=== PATIENT | female | born 1960 | race Caucasian/White ===

== ENCOUNTER → 2018-10-06 14:50 | Outpatient (CLI) | payer BC, SELFPAY ==
--- NOTE | 2018-10-06 15:05 | US_ITS ---
US thyroid HISTORY: ITS.REASON: HYPOTHYROIDISM,WGT GAIN ORDERING PHYSICIAN: Shruti Epperson APRN PATIENT AGE: 58 years Comparison: None FINDINGS: The right lobe is 1.5 x 4.2 x 1.5 cm. There is slight heterogeneous echogenicity. There is an 8 x 5 mm isoechoic nodule along the lower pole posteriorly on the right and could even represent a thyroid gland. The isthmus is thickened at 6 mm The left lobe is 1.6 x 4.2 x 1.6 cm. Mild heterogeneous echogenicity. IMPRESSION: 1. Mildly enlarged thyroid gland with heterogeneous echogenicity. 2. Hypoechoic nodule along the lower pole on the right a x 5 mm posteriorly and could represent a true thyroid nodule or a parathyroid gland.
== END ==
PROVIDERS: PCP Nurse Practitioner; Visit Provider Nurse Practitioner
DX: E03.8 Other specified hypothyroidism (principal); R63.5 Abnormal weight gain
CPT/HCPCS: 76536

== ENCOUNTER → 2018-11-15 06:59 | Outpatient (CLI) | payer BC, SELFPAY ==
--- NOTE | 2018-11-15 07:03 | NM_ITS ---
NM thyroid image uptake CLINICAL INDICATION: ITS.REASON: THYROMEGLY, THYROID NODULE ORDERING PHYSICIAN: Shruti Epperson APRN PATIENT AGE: 58 years Comparison: 10/06/2018 DOSE: 323 uCi I-123 orally FINDINGS: The 24 hour radioiodine uptake 2.4% is normal. Images obtained of the thyroid show mild heterogeneous enlargement. No discrete cold or hot nodule is evident. The small nodular area noted on ultrasound the right lobe may be below limits of resolution on this exam due to the size and location IMPRESSION: 1. Normal 24-hour radioiodine uptake. 2. Mildly enlarged thyroid gland without discrete hot or cold nodule. Consider 6 month follow-up ultrasound of the thyroid gland.
== END ==
PROVIDERS: PCP Nurse Practitioner; Visit Provider Nurse Practitioner
DX: E04.1 Nontoxic single thyroid nodule (principal)
CPT/HCPCS: 78014; A9516

== ENCOUNTER → 2020-04-18 10:17 | Outpatient (CLI) | payer BC, SELFPAY ==
--- NOTE | 2020-04-18 10:24 | XR_ITS ---
PROCEDURE: XR HIP RT 2-3V W/PELVIS CLINICAL INDICATION: RT HIP PAIN COMPARISON: No exams were available for comparison FINDINGS: No fracture or dislocation is evident. There is mild asymmetrical joint space narrowing mild spurring of the acetabulum superiorly and inferiorly. The SI joints and symphysis pubis appear normal. Left hip appears grossly normal. IMPRESSION: Mild osteoarthritic changes right hip Dictated by: Dr. Jaime Retana MD 04/18/2020 15:20 Dr. Jaime Retana MD in [place] 04/18/2020 15:20
== END ==
PROVIDERS: PCP Nurse Practitioner; Visit Provider Nurse Practitioner
DX: M25.551 Pain in right hip (principal)
CPT/HCPCS: 73502

== ENCOUNTER → 2020-04-23 08:24 | Outpatient (CLI) | payer BC, SELFPAY ==
--- NOTE | 2020-04-23 08:37 | MM_ITS ---
PROCEDURE: MM DIG SCREENING MAMM BI W/CAD Digital Breast Tomosynthesis Included CLINICAL INDICATION: SCREENING There is a history of breast cancer in the patient's maternal cousin diagnosed after menopause. COMPARISON: MG DMSB DIGITAL MAMM-SCREEN BILATERAL from 04/17/2011 MG DMDBAV DIG MAMM-DX BILAT W/ADD VIEWS from 04/28/2011 TECHNIQUE: Standard CC and MLO images and 3D Tomosynthesis was obtained. R2 CAD reviewed. FINDINGS: Moderate scattered fibroglandular densities are seen in both breasts. There are 2 mole markers right breast. There has been some interval fatty replacement of the breast parenchyma since the previous 2 exams. There is benign-appearing calcification left breast. There is no suspicious lesion in either breast and no suspicious microcalcifications. IMPRESSION: Fibrofatty parenchyma with no suspicious lesions seen BI-RAD Category: 2 Benign Finding(s) FOLLOW-UP: 1YR 1 Year Follow-up (A letter has been sent to the patient regarding results of the study.) Dictated by: Dr. Jaime Retana MD 04/24/2020 13:17 Dr. Jaime Retana MD in [place] 04/24/2020 13:17
== END ==
PROVIDERS: PCP Nurse Practitioner; Visit Provider Nurse Practitioner
DX: Z12.31 Encounter for screening mammogram for malignant neoplasm of breast (principal)
CPT/HCPCS: 77063; 77067

== ENCOUNTER 2020-09-28 14:17 | Inpatient (IN) | payer BC, SELFPAY ==
[2020-09-28] VITALS (20 sets, daily range): BP systolic 102–197; BP diastolic 59–86; PULSE 75–116; RESP 14–20; TEMP 36.5–38; O2SAT 82–99; BMI 40.1
--- NOTE | 2020-09-28 14:32 | HMH.EDGENADL ---
ED Disposition Clinical Impression: Acute appendicitis Qualifiers: Acute appendicitis type: with localized peritonitis Appendicitis gangrene presence: without gangrene Appendicitis perforation presence: without perforation Appendicitis abscess presence: without abscess Qualified Code(s): K35.30 - Acute appendicitis with localized peritonitis, without perforation or gangrene Disposition: Still a Patient Condition on Discharge: Good Instructions: DI for Acute Abdominal Pain Referrals: Anisa Pelletier APRN [Primary Care Provider] - 7-14 days Time of Disposition: 17:08 - Critical Care Critical Care Time: No Attestation: On , the high probability of a clinically significant, sudden or life threatening deterioration of the following system(s) required my full and direct attention, intervention and personal management. The time I documented below is in addition to time spent performing reported procedures but includes the following listed in this critical care notation. Medical Decision Making - Medical Records Medical records reviewed: Yes: I reviewed the patient's medical records. - Cuco Inquiry Pt receiving controlled substance: No Vital Signs: 09/28/20 14:17 09/28/20 14:32 09/28/20 15:00 Temperature 99.9 F H Temperature Source Oral Pulse Rate 110 H Pulse Rate [Right Radial] 116 H Respiratory Rate 18 20 Blood Pressure 197/86 H 113/68 Blood Pressure [Right Arm] 122/83 Blood Pressure Mean 87 Blood Pressure Mean [Right Arm] 96 Blood Pressure Source Blood Pressure Source [Right Arm] Automatic Cuff Blood Pressure Position Blood Pressure Position [Right Arm] Sitting 02 Sat by Pulse Oximetry 99 98 Oxygen Delivery Method Room Air 09/28/20 16:43 Temperature Temperature Source Pulse Rate 105 H Pulse Rate [Right Radial] Respiratory Rate 18 Blood Pressure 111/75 Blood Pressure [Right Arm] Blood Pressure Mean Blood Pressure Mean [Right Arm] Blood Pressure Source Automatic Cuff Blood Pressure Source [Right Arm] Blood Pressure Position Sitting Blood Pressure Position [Right Arm] 02 Sat by Pulse Oximetry 98 Oxygen Delivery Method Room Air - Lab Data Lab results reviewed: Yes: I reviewed the patient's lab results. Lab Results 09/28/20 14:23: Urine Color Yellow, Urine Appearance Clear, Urine pH 5.5, Ur Specific [place] 1.010, Urine Protein Negative, Urine Glucose (UA) Negative, Urine Ketones Negative, Urine Blood Negative, Urine Nitrate Negative, Urine Bilirubin Negative, Urine Urobilinogen 0.2, Ur Leukocyte Esterase Trace, Urine RBC None, Urine WBC Occasional, Ur Squamous Epith Cells Occasional, Urine Bacteria None 09/28/20 14:52: WBC 11.8 H, RBC 4.82, Hgb 14.0, Hct 41.2, MCV 85.4, MCH 29.1, MCHC 34.0, RDW 13.4, Plt Count 312, MPV 7.0 L, Neut % (Auto) 85.6 H, Lymph % (Auto) 6.5 L, [place] % (Auto) 7.2, Eos % (Auto) 0.2, Baso % (Auto) 0.5, Neut # (Auto) 10.1 H, Lymph # (Auto) 0.8, [place] # (Auto) 0.8, Eos # (Auto) 0.0, Baso # (Auto) 0.1, Total Counted 100, Neutrophils % (Manual) 74, Band Neutrophils % 4.0, Lymphocytes % (Manual) 11, Monocytes % (Manual) 11 H, Platelet Estimate Normal, RBC Morphology Normal 09/28/20 14:52: Sodium 136, Potassium 3.9, Chloride 99, Carbon Dioxide 27, Anion Gap 13.9, BUN 16, Creatinine 1.10 H, Estimated Creat Clear 88, Estimated GFR 51 L, Est GFR ( Amer) 61, Glucose 132 H, Calcium 9.7, Total Bilirubin 3.4 H, AST 27, ALT 31, Alkaline Phosphatase 68, Total Protein 8.3 H, Albumin 4.9, Globulin 3.4 H, Albumin/Globulin Ratio 1.4, Lipase 54 Result diagrams: 09/28/20 14:52 09/28/20 14:52 Orders (Tests/Meds): ED MEDICATIONS Discontinued Medications Generic Name Dose Route Start Last Admin Trade Name Dustinq PRN Reason Stop Dose Admin Iopamidol 75 ml 09/28/20 15:26 09/28/20 15:26 Iopamidol-370 (76%);100ml Bottle IV 09/28/20 15:27 75 ml ONCE ONE Administration Sodium Chloride 10 ml 09/28/20 15:26 09/28/20 15:26 Sodium Chloride 0.9% 1
--- NOTE | 2020-09-28 14:46 | CT_ITS ---
PROCEDURE INFORMATION: Exam: CT Abdomen And Pelvis With Contrast Exam date and time: 09/28/2020 2:46 PM Age: 60 years old Clinical indication: Abdominal pain; Localized; Right lower quadrant (rlq); Additional info: Rlq pain TECHNIQUE: Imaging protocol: Computed tomography of the abdomen and pelvis with contrast. Radiation optimization: All CT scans at this facility use at least one of these dose optimization techniques: automated exposure control; mA and/or kV adjustment per patient size (includes targeted exams where dose is matched to clinical indication); or iterative reconstruction. Contrast material: ISOVUE; Contrast volume: 75 ml; Contrast route: IV; COMPARISON: CR XR HIP RT 2-3V W/PELVIS 04/18/2020 10:27 AM FINDINGS: Lungs: Atelectatic changes within the lung bases. Mediastinal space: Large hiatal hernia. Liver: Normal. No mass. Gallbladder and bile ducts: There has been a cholecystectomy. Pancreas: Normal. No ductal dilation. Spleen: The spleen demonstrates punctate calcifications, consistent with remote granulomatous organism exposure. Adrenal glands: Normal. No mass. Kidneys and ureters: Normal. No hydronephrosis. Stomach and bowel: Unremarkable. No obstruction. No mucosal thickening. Appendix: There is enlargement of the appendix with surrounding inflammatory changes consistent with acute appendicitis. Intraperitoneal space: Normal. No significant fluid collection. Vasculature: Unremarkable. No abdominal aortic aneurysm. Lymph nodes: Right lower quadrant mesenteric lymph nodes measure up to 1.4 cm. Urinary bladder: Unremarkable as visualized. Reproductive: Heterogeneous appearance of the uterus may be secondary to leiomyomatous changes. Bones/joints: The lumbar spine demonstrates mild degenerative changes at multiple levels. Soft tissues: There is a fat-containing umbilical hernia. Other findings: Small amount of fluid is noted within the right lower quadrant. IMPRESSION: 1. There is enlargement of the appendix with surrounding inflammatory changes consistent with acute appendicitis. 2. Large hiatal hernia. 3. Heterogeneous appearance of the uterus may be secondary to leiomyomatous changes. 4. Small amount of fluid is noted within the right lower quadrant. 5. Right lower quadrant mesenteric lymph nodes measure up to 1.4 cm.
[2020-09-28 15:00] LABS: Basophils # 0.1 K/mm3 (0-0.2); Basophils % 0.5 % (0.1-2.0); Eosinophils % 0.2 % (0.1-12.0); Hematocrit 41.2 % (37.0-47.0); Lymphocytes # 0.8 K/mm3 (0.7-4.5); Lymphocytes % 6.5 % (10-50); Mean Corpuscular Hemoglobin 29.1 pg (27.0-31.2); Mean Corpuscular Volume 85.4 fl (81-99); Monocytes # 0.8 K/mm3 (0.1-1.0); Monocytes % 7.2 % (1.7-9.3); Neutrophils # 10.1 K/mm3 (1.8-7.8); Neutrophils % 85.6 % (37.0-80.0); Platelet Count 312 K/mm3 (142-424); Red Blood Count 4.82 M/mm3 (4.20-5.40); Red Cell Distribution Width 13.4 % (11.5-17.5); White Blood Count 11.8 K/mm3 (4.8-10.8)
[2020-09-28 15:02] LABS: MANUAL DIFFERENTIAL MANUAL DIFFERENTIAL (MANUAL DIFF)
[2020-09-28 15:02] LABS: Microscopic, Urine URINE MICROSCOPIC (MICROSCOPIC)
[2020-09-28 15:03] LABS: Chloride 99 mmol/L (98-107); Sodium 136 mmol/L (136-145)
[2020-09-28 15:04] LABS: Appearance,Urine CLEAR (Clear); Bilirubin,Urine Negative (Negative); Blood, Urine Negative (Negative); Color,Urine YELLOW (Yellow); Glucose,Urine (UA) Negative (Negative); Ketones,Urine Negative (Negative); Leukocyte Esterase,Urine TRACE (Negative); Nitrate,Urine Negative (Negative); PH,Urine 5.5 (5.0-8.5); Protein,Urine Negative (Negative); Urobilinogen,Urine 0.2 EU/dl (0.2)
[2020-09-28 15:04] LABS: Potassium 3.9 mmoL/L (3.5-5.1)
[2020-09-28 15:06] LABS: Alanine Aminotransferase 31 U/L (12-78); Alkaline Phosphatase 68 U/L (38-126); Anion Gap 13.9 mEq/L (5-15); Aspartate Amino Transferase 27 U/L (14-36); Bilirubin,Total 3.4 mg/dl (0.2-1.3); Blood Urea Nitrogen 16 mg/dl (7-17); Carbon Dioxide 27 mmol/L (22.0-30.0); Creatinine Clearance Estimated 88 mL/min (50-200); Estimated Glomerular Filt Rate 51 ml/min (>60); GFR (African American) 61 ML/MIN (>60)
[2020-09-28 15:07] LABS: Albumin Level 4.9 g/dl (3.5-5.0); Albumin/Globulin Ratio 1.4 (1.1-1.8); Calcium 9.7 mg/dl (8.4-10.2); Globulin 3.4 g/dL (1.3-3.2); Glucose 132 mg/dl (74-100); Lipase 54 U/L (23-300); Total Protein,Serum 8.3 g/dl (6.3-8.2)
[2020-09-28 15:15] LABS: Squamous Epithelial Cell,Urine Occasional #/hpf (0-5); WBC,Urine Occasional #/hpf (0-3)
[2020-09-28 15:18] LABS: Lymphocytes % 11 % (10-50); Monocytes % 11 % (2-9); Neutrophils % 74 % (42-76); Platelet Estimate Normal; RBC Morphology Normal; Total Cells Counted 100
--- NOTE | 2020-09-28 15:51 | PC.NURSE ---
MERCEDES MEEHAN speaking with willy
--- NOTE | 2020-09-28 15:53 | PC.NURSE ---
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
--- NOTE | 2020-09-28 15:54 | PC.NURSE ---
MERCEDES MEEHAN speaking with Dr. Holden
--- NOTE | 2020-09-28 15:59 | PC.NURSE ---
MERCEDES MEEHAN states Dr. Holden is coming in to see pt.
[2020-09-28 16:14] LABS: Adenovirus,PCR Not Detected (NotDetected); Bordetella Pertussis Not Detected (NotDetected); Chlamydophila Pneumoniae, PCR Not Detected (NotDetected); Coronavirus 19, PCR Not Detected (NotDetected); Coronavirus 229E Not Detected (NotDetected); Coronavirus NL63 Not Detected (NotDetected); Coronavirus OC43 Not Detected (NotDetected); Coronovirus HKU1,PCR Not Detected (NotDetected); Human Metapneumovirus Not Detected (NotDetected); Influenza A, PCR Not Detected (NotDetected); Influenza AH1, 2009 Not Detected (NotDetected); Influenza AH1, PCR Not Detected (NotDetected); Influenza AH3,PCR Not Detected (NotDetected); Influenza B, PCR Not Detected (NotDetected); Mycoplasma Pneumoniae, PCR Not Detected (NotDetected); Parainfluenza 1, PCR Not Detected (NotDetected); Parainfluenza 2, PCR Not Detected (NotDetected); Parainfluenza 3, PCR Not Detected (NotDetected); Parainfluenza 4, PCR Not Detected (NotDetected); Respiratory Syncytial Virus Not Detected (NotDetected); Rhinovirus/Enterovirus Not Detected (NotDetected)
--- NOTE | 2020-09-28 16:50 | PC.NURSE ---
Dr. Holden at [facility]
--- NOTE | 2020-09-28 16:58 | PC.NURSE ---
Dr. Holden states will be taking pt to OR, states he has already notified general house worker to call in OR staff.
--- NOTE | 2020-09-28 17:05 | HMH.GSHP ---
HPI HPI: Patient is a 60-year-old female. She has had right lower quadrant pain for about 4 days. She developed nausea today and therefore presented to the emergency department where she was seen and evaluated. She was found to have mild tachycardia and tenderness in the right lower quadrant. She had a mild leukocytosis. She underwent CT scan which revealed findings of distended appendix with periappendiceal stranding with a small amount of free fluid consistent with appendicitis. Surgical consultation was obtained. [facility] History I have reviewed the patient's past medical history: Yes Medical History: Reports:: Hypertension *Have you ever received a pneumonia vaccine?: No *Have you received a flu vaccine this season?: No - *Social History Smoking Status: Never smoker Alcohol Intake: never *Occupational Status:: other *Travel in the last 8 weeks: None Family Hx:: Non-contributory Review of Systems - Review of Systems Review of systems:: pertinent systems reviewed and negative unless documented below Meds Home Medications Medication Instructions Recorded Confirmed Type Levothyroxine Sodium 100 mcg PO DAILY 09/28/20 09/28/20 History [Levothyroxine 100mcg (0.1MG) Tab] Lisinopril/Hydrochlorothiazide 1 each PO DAILY 09/28/20 09/28/20 History [Lisinopril-Hctz 20-12.5 mg Tab] Meloxicam 15 mg PO DAILY 09/28/20 09/28/20 History Allergies Allergy/AdvReac Type Severity Reaction Status Date / Time cephalexin [From Keflex] Allergy Verified 09/28/20 14:33 Penicillins Allergy Verified 09/28/20 14:33 Sulfa (Sulfonamide Allergy Verified 09/28/20 14:33 Antibiotics) Exam Vital signs and Labs for Last 24 Hours: Temp Pulse Resp BP Pulse Ox 99.9 F H 105 H 18 111/75 98 09/28/20 14:17 09/28/20 16:43 09/28/20 16:43 09/28/20 16:43 09/28/20 16:43 Laboratory Results - last 24 hr 09/28/20 14:23: Urine Color Yellow, Urine Appearance Clear, Urine pH 5.5, Ur Specific [place] 1.010, Urine Protein Negative, Urine Glucose (UA) Negative, Urine Ketones Negative, Urine Blood Negative, Urine Nitrate Negative, Urine Bilirubin Negative, Urine Urobilinogen 0.2, Ur Leukocyte Esterase Trace, Urine RBC None, Urine WBC Occasional, Ur Squamous Epith Cells Occasional, Urine Bacteria None 09/28/20 14:52: WBC 11.8 H, RBC 4.82, Hgb 14.0, Hct 41.2, MCV 85.4, MCH 29.1, MCHC 34.0, RDW 13.4, Plt Count 312, MPV 7.0 L, Neut % (Auto) 85.6 H, Lymph % (Auto) 6.5 L, [place] % (Auto) 7.2, Eos % (Auto) 0.2, Baso % (Auto) 0.5, Neut # (Auto) 10.1 H, Lymph # (Auto) 0.8, [place] # (Auto) 0.8, Eos # (Auto) 0.0, Baso # (Auto) 0.1, Total Counted 100, Neutrophils % (Manual) 74, Band Neutrophils % 4.0, Lymphocytes % (Manual) 11, Monocytes % (Manual) 11 H, Platelet Estimate Normal, RBC Morphology Normal 09/28/20 14:52: Sodium 136, Potassium 3.9, Chloride 99, Carbon Dioxide 27, Anion Gap 13.9, BUN 16, Creatinine 1.10 H, Estimated Creat Clear 88, Estimated GFR 51 L, Est GFR ( Amer) 61, Glucose 132 H, Calcium 9.7, Total Bilirubin 3.4 H, AST 27, ALT 31, Alkaline Phosphatase 68, Total Protein 8.3 H, Albumin 4.9, Globulin 3.4 H, Albumin/Globulin Ratio 1.4, Lipase 54 I & O for Last 24 hours: Intake & Output 09/26/20 09/27/20 09/28/20 09/29/20 11:59 11:59 11:59 11:59 Weight 227 lb - Constitutional no acute distress - *Routine HEENT Exam Head: Present: normocephalic Eye: Present: EOMI, PERRL ENT: Present: mucous membranes moist - *Routine Neck Exam Present: supple. Absent: lymphadenopathy - *Routine Respiratory Exam Present: CTA bilaterally - *Routine Cardiovascular Exam Present: RRR - *Routine Abdominal Exam Present: soft, tenderness Comments: Patient has tenderness in the right lower quadrant with voluntary guarding. - *Routine Rectal Exam Rectal:: deferred - *Routine Genitalia Exam Genitalia:: deferred - *Routine Extremities Exam Absent: cyanosis, clubbing, edema - *Routine Skin Exam Present: warm. Absent:
--- NOTE | 2020-09-28 17:25 | PC.NURSE ---
surgery staff at
--- NOTE | 2020-09-28 19:06 | P.OP_ITS ---
Date of procedure: 09/28/20 Pre-op Diagnosis:: Acute appendicitis Post-op Diagnosis:: Acute walled off perforated necrotic appendicitis Procedure performed:: Laparoscopic appendectomy Surgeon:: Kevin Holden MD TELECOMMUNICATION SYSTEMS DESIGNER:: Other Anesthesia: TYRA Estimated blood loss (mL): 20 Clinical Note:: Patient is a 60-year-old female. She has had right lower quadrant pain for about 4 days. She describes the pain as sharp. Worse with movement. She developed nausea today and therefore presented to the emergency department where she was seen and evaluated. She was found to have mild tachycardia and tenderness in the right lower quadrant. She had a mild leukocytosis. She had low-grade fever. She underwent CT scan which revealed findings of distended linda endix with periappendiceal stranding with a small amount of free fluid consistent with appendicitis. Surgical consultation was obtained. Operative findings:: She had a severe acute appendicitis with necrosis and essentially walled off perforation as the appendix was adherent to the abdominal sidewall. This was essentially consistent with periappendiceal abscess with necrosis and walled off perforation. Operative note:: Patient was taken to the operating room. She was given preoperative intravenous antibiotics. In the operating room she was placed in the supine position. General anesthesia was induced. Antunez catheter was placed. Abdomen was prepped and draped in the standard surgical fashion. Infraumbilical skin incision was made and while performing abdominal wall lift Veress needle was inserted. 12 mm optical trocar was inserted at the umbilicus. Laparoscopic surveillance was carried out. She has some cloudy fluid in the pelvis. 5 mm trocar was inserted in the lower abdomen. 5 mm trocar was inserted in the right upper abdomen. The cecum was inspected. There was some inflammatory change. The base of the appendix was initially identified. The cecum was mobilized medially and the appendix was adherent to the abdominal sidewall. Upon mobilization of the appendix there was pus and a couple fecaliths which exuded from the appendix. This was immediately suctioned free and removed from the peritoneal cavity. Appendix was extremely inflamed with evidence of necrosis and walled off perforation. There was a large amount of induration and mobilization of the appendix from the pericecal tissues and abdominal sidewall is quite difficult. This was a prolonged procedure. Ultimately the appendix was mobilized and the mesoappendix was divided with KULDIP ultrasonic harmonic alessandra. Prolonged dissection was carried out down to the base of the appendix which was relatively spared. The appendix was divided at its base with endoscopic ADDY linear cutting stapling device. The appendix was placed within an Endo Catch retrieval device removed from the peritoneal cavity via the umbilical trocar site which required some minimal extension of the fascial incision for delivery. The previous abscess cavity at the pericecal location was thoroughly irrigated and aspirated until clear with several liters of warm saline. Irrigation was also carried out in the pelvis and perihepatic space. There appeared to be good hemostasis. Trochars were then removed as CO2 pneumoperitoneum was evacuated. Fascia at the umbilicus was closed with a couple of interrupted 0 Vicryl sutures. Local anesthetic was infiltrated. Skin incisions were closed with 4-0 Monocryl in a subcuticular fashion. Steri-Strips and dressings were applied. Condition: stable Disposition: PACU Specimens:: Appendix Complications:: None immediately apparent
--- NOTE | 2020-09-28 19:21 | HMH.ANESCL ---
[facility] Anesthesia Checklist - Patient Identification Patient Identification: Arm Band - Structural Data Admitted From: Emergency Dept Planned Operative Procedure/s: Lap. appy Consent for Planned Operative Procedure(s) Verified: Yes Verified Documents: Surgical Consent, History and Physical - NPO Status Verified Time NPO: 00:00 - Additional verifications Anesthesia Reactions: No Hx Blood Transfusions: No Blood Transfusion Reaction: No - Airway Assessment C-Spine Mobility Assessed: Yes TMJ Mobility Assessed: Yes Dentition: Good Dentition - Neurological Assessment Level of Consciousness: Awake, Alert - Anesthesia Plan Anesthesia Risk discussed: Yes Anesthesia Plan: Verified ASA Class: III Anesthesia Type: General [facility] History Medical History: Reports:: Hypertension Denies:: Seizures *Have you ever received a pneumonia vaccine?: No *Have you received a flu vaccine this season?: No Other Medical History: Denies: Blood Transfusion Reaction Anesthesia experience/problems:: None - *Social History Smoking Status: Never smoker Alcohol Intake: never Substance Use Type: denies use *Occupational Status:: other *Travel in the last 8 weeks: None Family Hx:: Non-contributory
--- NOTE | 2020-09-28 19:25 | P.PN_ITS ---
[facility] Anesthesia Record Part I Intake, IV Amount: 1,000 Estimated blood loss (mL): 3 Urine output (mL): 250 Blood Products used (#): none Blood Pressure: 129/64 SaO2: 93 Pulse Rate: 91 Respiratory Rate: 14 Temperature: 98.7 F Patient is:: Awake, Drowsy Stable to PACU at:: 19:25
[2020-09-28 19:39] LABS: Microscopic,Cath URINE MICROSCOPIC (MICROSCOPIC)
--- NOTE | 2020-09-28 19:39 | PC.NURSE ---
Addendum entered by Mary Rand CNA 09/28/20 19:40: CORRECTION- CORRECT ARRIVAL TIME TO FLOOR 1938 Original Note: PT ARRIVED TO FLOOR VIA BED FROM OR/STAFF AT 2939.
[2020-09-28 19:40] LABS: Appearance,Urine/Cath CLEAR (Clear); Bilirubin,Cath Negative (Negative); Blood, Urine/Cath Negative (Negative); Color,Urine/Cath YELLOW (Yellow); Glucose,Urine/Cath (UA) Negative (Negative); Ketones,Urine/Cath Negative (Negative); Leukocyte Esterase,Cath Negative (Negative); Nitrate,Cath Negative (Negative); PH,Urine/Cath 5.5 (5.0-8.5); Protein,Urine/Cath Negative (Negative); Specific Gravity, Urine/Cath <= 1.005 (1.005-1.030); Urobilinogen,Cath 0.2 EU/dl (0.2)
[2020-09-28 19:47] LABS: Bacteria,Urine/Cath TRACE /lpf
[2020-09-29] VITALS (7 sets, daily range): BP systolic 103–124; BP diastolic 59–74; PULSE 68–85; RESP 16–17; TEMP 36.4–37; O2SAT 93–97; BMI 40.1
--- NOTE | 2020-09-29 02:59 | PC.NURSE ---
A&OX4. PT TOLERATING RA WELL. POST OP VS ALL STABLE. PT HAS NOT C/O PAIN THUS FAR THIS SHIFT. 3 ABD INCISIONS CDI. PT HAS WALKED TO AND FROM BR WITH STANDBY ASSIST. ADEQUATE U/O. PT SLEEPING MAJORITY OF SHIFT. TOLERATING CLEAR LIQUID DIET. VSS WILL CONTINUE TO MONITOR.
--- NOTE | 2020-09-29 05:26 | PC.NURSE ---
PT ARRIVED TO FLOOR VIA W/C FROM ED W/STAFF AT 0930
[2020-09-29 06:48] LABS: Lymphocytes # 0.4 K/mm3 (0.7-4.5); Lymphocytes % 4.4 % (10-50)
[2020-09-29 06:58] LABS: Mean Corpuscular HGB Conc 34.1 g/dL (31.8-35.4); Mean Corpuscular Hemoglobin 29.2 pg (27.0-31.2); Mean Corpuscular Volume 85.5 fl (81-99); Mean Platelet Volume 7.3 fl (7.4-10.4); Monocytes # 0.4 K/mm3 (0.1-1.0); Neutrophils # 7.4 K/mm3 (1.8-7.8); Neutrophils % 90.5 % (37.0-80.0); Platelet Count 235 K/mm3 (142-424); Red Blood Count 4.22 M/mm3 (4.20-5.40); Red Cell Distribution Width 13.3 % (11.5-17.5); White Blood Count 8.2 K/mm3 (4.8-10.8)
[2020-09-29 07:03] LABS: Hemoglobin 12.3 g/dL (12.2-16.2)
[2020-09-29 07:04] LABS: MANUAL DIFFERENTIAL MANUAL DIFFERENTIAL (MANUAL DIFF)
[2020-09-29 07:11] LABS: Blood Urea Nitrogen 16 mg/dl (7-17); Chloride 104 mmol/L (98-107); Creatinine Clearance Estimated 43 mL/min (50-200); Estimated Glomerular Filt Rate 51 ml/min (>60); GFR (African American) 61 ML/MIN (>60); Glucose 215 mg/dl (74-100); Potassium 3.7 mmoL/L (3.5-5.1)
[2020-09-29 08:03] LABS: Lymphocytes % 9 % (10-50); Monocytes % 6 % (2-9); Neutrophils % 81 % (42-76); Platelet Estimate Normal; RBC Morphology Normal; Total Cells Counted 100
[2020-09-29 08:04] LABS: Anion Gap 10.7 mEq/L (5-15); Carbon Dioxide 25 mmol/L (22.0-30.0); Sodium 136 mmol/L (136-145)
[2020-09-29 08:15] LABS: Calcium 8.5 mg/dl (8.4-10.2)
--- NOTE | 2020-09-29 08:55 | HMH.GSPN ---
Subjective Narrative: Patient feels better. No intense pain, now resolved. Has some soreness. Progress Note: A&P Assessment and Plan for All Diagnoses:: Continue antibiotics. Limit to clear liquids today due to potential for ileus and due to the amount of dissection required for necrotic perforated appendicitis with established focal peritonitis. Exam Vital signs and Labs for Last 24 Hours: Temp Pulse Resp BP Pulse Ox 98.6 F 79 17 117/64 93 L 09/29/20 08:00 09/29/20 08:00 09/29/20 08:00 09/29/20 08:00 09/29/20 08:00 Laboratory Results - last 24 hr 09/28/20 14:23: Urine Color Yellow, Urine Appearance Clear, Urine pH 5.5, Ur Specific [place] 1.010, Urine Protein Negative, Urine Glucose (UA) Negative, Urine Ketones Negative, Urine Blood Negative, Urine Nitrate Negative, Urine Bilirubin Negative, Urine Urobilinogen 0.2, Ur Leukocyte Esterase Trace, Urine RBC None, Urine WBC Occasional, Ur Squamous Epith Cells Occasional, Urine Bacteria None 09/28/20 14:52: WBC 11.8 H, RBC 4.82, Hgb 14.0, Hct 41.2, MCV 85.4, MCH 29.1, MCHC 34.0, RDW 13.4, Plt Count 312, MPV 7.0 L, Neut % (Auto) 85.6 H, Lymph % (Auto) 6.5 L, [place] % (Auto) 7.2, Eos % (Auto) 0.2, Baso % (Auto) 0.5, Neut # (Auto) 10.1 H, Lymph # (Auto) 0.8, [place] # (Auto) 0.8, Eos # (Auto) 0.0, Baso # (Auto) 0.1, Total Counted 100, Neutrophils % (Manual) 74, Band Neutrophils % 4.0, Lymphocytes % (Manual) 11, Monocytes % (Manual) 11 H, Platelet Estimate Normal, RBC Morphology Normal 09/28/20 14:52: Sodium 136, Potassium 3.9, Chloride 99, Carbon Dioxide 27, Anion Gap 13.9, BUN 16, Creatinine 1.10 H, Estimated Creat Clear 88, Estimated GFR 51 L, Est GFR ( Amer) 61, Glucose 132 H, Calcium 9.7, Total Bilirubin 3.4 H, AST 27, ALT 31, Alkaline Phosphatase 68, Total Protein 8.3 H, Albumin 4.9, Globulin 3.4 H, Albumin/Globulin Ratio 1.4, Lipase 54 09/28/20 15:42: Urine Color Yellow, Urine Appearance Clear, Urine pH 5.5, Ur Specific [place] <= 1.005, Urine Protein Negative, Urine Glucose (UA) Negative, Urine Ketones Negative, Urine Blood Negative, Urine Nitrate Negative, Urine Bilirubin Negative, Urine Urobilinogen 0.2, Ur Leukocyte Esterase Negative, Urine RBC None, Urine WBC None, Ur Squamous Epith Cells 3-5, Urine Bacteria Trace 09/28/20 16:05: Chlamy pneumoniae PCR Not detected, Adenovirus (PCR) Not detected, B. pertussis DNA (PCR) Not detected, Coronavirus OC43 (PCR) Not detected, Coronavirus HKU1 (PCR) Not detected, Coronavirus 229E (PCR) Not detected, SARS-CoV-2 (PCR) Not detected, Coronavirus NL63 (PCR) Not detected, Human Metapneumovir PCR Not detected, Influenza A (H1) PCR Not detected, Influ A (H1N1/09) PCR Not detected, Influenza A (H3) PCR Not detected, Influenza Type A (PCR) Not detected, Influenza Type B (PCR) Not detected, M. pneumoniae (PCR) Not detected, Parainfluenza 1 (PCR) Not detected, Parainfluenza 2 (PCR) Not detected, Parainfluenza 3 (PCR) Not detected, Parainfluenza 4 (PCR) Not detected, RSV (PCR) Not detected, Entero/Rhino (PCR) Not detected 09/29/20 06:28: WBC 8.2 D, RBC 4.22, Hgb 12.3 D, Hct 36.0 L, MCV 85.5, MCH 29.2, MCHC 34.1, RDW 13.3, Plt Count 235, MPV 7.3 L, Neut % (Auto) 90.5 H, Lymph % (Auto) 4.4 L, [place] % (Auto) 5.0, Eos % (Auto) 0.0 L, Baso % (Auto) 0.0 L, Neut # (Auto) 7.4, Lymph # (Auto) 0.4 L, [place] # (Auto) 0.4, Eos # (Auto) 0.0, Baso # (Auto) 0.0, Total Counted 100, Neutrophils % (Manual) 81 H, Band Neutrophils % 4.0, Lymphocytes % (Manual) 9 L, Monocytes % (Manual) 6, Platelet Estimate Normal, RBC Morphology Normal 09/29/20 06:28: Sodium 136, Potassium 3.7, Chloride 104, Carbon Dioxide 25, Anion Gap 10.7, BUN 16, Creatinine 1.10 H, Estimated Creat Clear 43, Estimated GFR 51 L, Est GFR ( Amer) 61, Glucose 215 H D, Calcium 8.5 D I & O for Last 24 hours: Intake & Output 09/26/20 09/27/20 09/28/20 09/29/20 11:59 11:59 11:59 11:59 Intake Total 2167 / 2167 Output Total 250 / 250 Balance 1917 Weight 226 lb 4 oz - *Routine Ab
--- NOTE | 2020-09-29 11:26 | P.CONPHA_ITS ---
[facility] Pharmacy VTE Monitoring - Patient Demographics Admission date: 09/28/20 Report Date: 09/29/20 Time: 11:26 Allergies/Adverse Reactions: Patient Allergies cephalexin [From Keflex] Allergy (Verified 09/28/20 14:33) Penicillins Allergy (Verified 09/28/20 14:33) Sulfa (Sulfonamide Antibiotics) Allergy (Verified 09/28/20 14:33) Height: 1.6 m Weight: 102.625 kg Patient Problems: Current Active Problems Acute appendicitis (Acute) - VTE Risk Labs: VTE Related Lab Results Hgb 12.3 g/dL (12.2-16.2) D 09/29/20 06:28 Hct 36.0 % (37.0-47.0) L 09/29/20 06:28 Plt Count 235 K/mm3 (142-424) 09/29/20 06:28 BUN 16 mg/dl (7-17) 09/29/20 06:28 Creatinine 1.10 mg/dl (0.52-1.04) H 09/29/20 06:28 Estimated Creat Clear 43 mL/min (50-200) 09/29/20 06:28 - Prophylaxis VTE Prophylaxis Ordered?: Yes Types of VTE Prophylaxis: TEDS Knee High Location of Applied Device: Bilateral Lower Extremeties
--- NOTE | 2020-09-29 11:26 | HMH.PHAINT ---
MEDICATION RECONCILIATION COMPLETED ON PATIENT USING EXTERNAL FILL HISTORY FROM PHARMACY. -MADHURI GIANG, AYOD
--- NOTE | 2020-09-29 13:43 | PC.NURSE ---
PT IS SITTING UP IN THE CHAIR WITH FAMILY IN THE ROOM. ALERT AND ORIENTED X3. PT HAS BEEN AMBULATING TO THE BATHROOM AND AROUND THE ROOM. ABDOMEN SOFT/TENDER WITH HYPOACTIVE BOWEL SOUNDS. DRESSINGS TO THE ABDOMEN C/D/I. TOLERATING CLEAR LIQUID WELL. LUNG SOUNDS CLEAR. VSS. WILL CONTINUE TO MONITOR.
[2020-09-30] VITALS: BP 116/64; PULSE 72; RESP 16; TEMP 36.9; O2SAT 97
--- NOTE | 2020-09-30 03:44 | PC.NURSE ---
A%OX4. PT UP WITH STANDBY ASSIST IN ROOM. PT TOLERATING RA WELL. PT HAS HAD X2 LOOSE BM THIS SHIFT. PT HAS CONTINUED TO HAVE NO C/O PAIN/NA/VO. PT HAS SLEPT T/O NIGHT. VSS WILL CONTINUE TO MONITOR.
[2020-09-30 04:00] VITALS: BP 150/71; PULSE 86; RESP 16; TEMP 36.8; O2SAT 95
[2020-09-30 05:14] VITALS: BMI 40.0
--- NOTE | 2020-09-30 07:19 | HMH.GSPN ---
Subjective Narrative: Overall patient feels better. Less muscle spasms in the abdomen. Tolerating clear liquids. States she has had some loose stools. Progress Note: A&P Assessment and Plan for All Diagnoses:: Advance diet to full liquid diet. Continue IV antibiotics for perforated appendicitis with established peritonitis. Possible DC home on oral antibiotics soon. Exam Vital signs and Labs for Last 24 Hours: Temp Pulse Resp BP Pulse Ox 98.2 F 86 16 150/71 H 95 09/30/20 04:00 09/30/20 04:00 09/30/20 04:00 09/30/20 04:00 09/30/20 04:00 Laboratory Results - last 24 hr 09/29/20 06:28: Total Counted 100, Neutrophils % (Manual) 81 H, Band Neutrophils % 4.0, Lymphocytes % (Manual) 9 L, Monocytes % (Manual) 6, Platelet Estimate Normal, RBC Morphology Normal 09/29/20 06:28: Sodium 136, Potassium 3.7, Chloride 104, Carbon Dioxide 25, Anion Gap 10.7, BUN 16, Creatinine 1.10 H, Estimated Creat Clear 43, Estimated GFR 51 L, Est GFR ( Amer) 61, Glucose 215 H D, Calcium 8.5 D I & O for Last 24 hours: Intake & Output 09/27/20 09/28/20 09/29/20 09/30/20 11:59 11:59 11:59 11:59 Intake Total 2167 / 2167 Output Total 250 / 250 Balance 1917 Weight 226 lb 4 oz 226 lb 1 oz - *Routine Abdominal Exam Present: soft
[2020-09-30 07:56] VITALS: BP 130/66; PULSE 83; RESP 18; TEMP 36.7; O2SAT 96
[2020-09-30 09:01] LABS: Chloride 103 mmol/L (98-107); Sodium 139 mmol/L (136-145)
[2020-09-30 09:04] LABS: Potassium 3.7 mmoL/L (3.5-5.1)
[2020-09-30 09:05] LABS: Anion Gap 12.7 mEq/L (5-15); Blood Urea Nitrogen 15 mg/dl (7-17); Calcium 9.1 mg/dl (8.4-10.2); Carbon Dioxide 27 mmol/L (22.0-30.0); Creatinine Clearance Estimated 39 mL/min (50-200); Estimated Glomerular Filt Rate 46 ml/min (>60); GFR (African American) 55 ML/MIN (>60); Glucose 130 mg/dl (74-100)
[2020-09-30 10:26] VITALS: BMI 40.2
[2020-09-30 16:00] VITALS: BP 146/61; PULSE 97; RESP 21; TEMP 36.8; O2SAT 91
--- NOTE | 2020-09-30 17:15 | PC.NURSE ---
PT IS RESTING IN BED. NO COMPLAINTS OF DISCOMFORT. ALERT AND ORIENTED X4. PT HAS BEEN AMBULATING TO THE BATHROOM AND AROUND THE ROOM. TOLERATED SITTING UP IN THE CHAIR FOR SEVERAL HOURS THIS AFTERNOON. TOLERATING FULL LIQUIDS. PT HAS BEEN HAVING BOWEL MOVEMENTS. ABDOMEN SOFT/TENDER WITH ACTIVE BOWEL SOUNDS. DRESSINGS TO THE ABDOMEN C/D/I. VSS. WILL CONTINUE TO MONITOR.
[2020-09-30 20:00] VITALS: BP 148/79; PULSE 87; RESP 16; TEMP 37.2; O2SAT 97
[2020-10-01 04:00] VITALS: BP 143/90; PULSE 89; RESP 18; TEMP 36.9; O2SAT 97
[2020-10-01 05:06] VITALS: BMI 39.9
--- NOTE | 2020-10-01 05:22 | PC.NURSE ---
Very pleasant patient oriented X 4. Patient rested comfortably throughout the night. Patient received ABx times 1. Patient did not complain of pain nor received Pain Rx this shift. Patient expected to be discharged today. Will continue to monitor for any acute changes.
--- NOTE | 2020-10-01 07:08 | HMH.GSPN ---
Subjective Patient reports: feels better Progress Note: A&P Assessment and Plan for All Diagnoses:: Discharge home Exam Vital signs and Labs for Last 24 Hours: Temp Pulse Resp BP Pulse Ox 98.4 F 89 18 143/90 H 97 10/01/20 04:00 10/01/20 04:00 10/01/20 04:00 10/01/20 04:00 10/01/20 04:00 Laboratory Results - last 24 hr 09/30/20 08:46: Sodium 139, Potassium 3.7, Chloride 103, Carbon Dioxide 27, Anion Gap 12.7, BUN 15, Creatinine 1.20 H, Estimated Creat Clear 39, Estimated GFR 46 L, Est GFR ( Amer) 55 L, Glucose 130 H, Calcium 9.1 I & O for Last 24 hours: Intake & Output 09/28/20 09/29/20 09/30/20 10/01/20 11:59 11:59 11:59 11:59 Intake Total 2168 / 2168 2662 / 2662 1254 / 1254 Output Total 250 / 250 Balance 1917 2662 / 2662 1254 / 1254 Weight 226 lb 4 oz 227 lb 1.218 oz 225 lb 4 oz - *Routine Abdominal Exam Present: soft
--- NOTE | 2020-10-01 07:13 | HMH.DCSUM ---
General - General Admission date:: 09/28/20 Discharge date: 10/01/20 HPI HPI: Patient is a 60-year-old female. She had right lower quadrant pain for about 4-5 days prior to presentation on 09/28/2020. She describes the pain as sharp. Worse with movement. She developed nausea and therefore presented to the emergency department where she was seen and evaluated. She was found to have mild tachycardia and tenderness in the right lower quadrant. She had a mild leukocytosis. She had low-grade fever. She underwent CT scan which revealed findings of distended appendix with periappendiceal stranding with a small amount of free fluid consistent with appendicitis. Surgical consultation was obtained. Hospital Course Hospital Course: Patient was seen and examined. Arrangements were made for operative intervention for appendicitis. She was taken to the operating room at which time she underwent laparoscopic appendectomy. She had a severe acute appendicitis with necrosis and essentially walled off perforation as the appendix was adherent to the abdominal sidewall. This was essentially consistent with periappendiceal abscess with necrosis and walled off perforation. This was able to be managed successfully laparoscopically. She was admitted postoperatively for continued care with intravenous antibiotics. She was continued on levofloxacin and metronidazole. She was given a clear liquid diet. Her white blood cell count had normalized. On postoperative day #2 she was advanced to full liquid diet. She tolerated this without difficulty. She remained afebrile. On postoperative day #3 arrangements were made for discharge home. Plan was for discharge on continuation of oral antibiotics of levofloxacin and metronidazole for a total course of 10 days given her necrotic appendix with walled off perforation. Objective Vital signs: Temp Pulse Resp BP Pulse Ox 98.4 F 89 18 143/90 H 97 10/01/20 04:00 10/01/20 04:00 10/01/20 04:00 10/01/20 04:00 10/01/20 04:00 Results Labs on day of discharge: Labs from last 24 hours 09/30/20 08:46 Sodium 139 Potassium 3.7 Chloride 103 Carbon Dioxide 27 Anion Gap 12.7 BUN 15 Creatinine 1.20 H Estimated Creat Clear 39 Estimated GFR 46 L Est GFR ( Amer) 55 L Glucose 130 H Calcium 9.1 DS: Diagnosis - Discharge Diagnosis (1) Acute appendicitis Status: Acute Discharge Plan - Patient Discharge Instructions ACTIVITY: No heavy lifting DIET: advance to your usual diet Patient Instructions: Appendicitis, Surgical Site Infection, Appendectomy -- Laparoscopic Surgery - Follow up Plan Follow up with: Kevin Holden MD [Staff Physician] - 2 weeks Anisa Pelletier APRN [Primary Care Provider] - 7-14 days Disposition: Home, Self-Care Condition at discharge:: Improved Home Medications: Home Medications Medication Instructions Recorded Confirmed Type Levothyroxine Sodium 100 mcg PO DAILY 09/28/20 09/28/20 History [Levothyroxine 100mcg (0.1MG) Tab] Lisinopril/Hydrochlorothiazide 1 each PO DAILY 09/28/20 09/28/20 History [Lisinopril-Hctz 20-12.5 mg Tab] Meloxicam 15 mg PO DAILY 09/28/20 09/28/20 History Hydrocod/Acet 5/325 mg [[place] 1 - 2 tab PO Q6HP PRN #21 tab 10/01/20 Rx 5/325mg tablet] levoFLOXacin [Levaquin 500mg 500 mg PO DAILY #7 tab 10/01/20 Rx tab] metroNIDAZOLE [Flagyl 500mg 500 mg PO Q8H #21 tab 10/01/20 Rx Tablet] Prescriptions/Medication Reconciliation: New Hydrocod/Acet 5/325 mg [[place] 5/325mg tablet] 1 - 2 tab PO Q6HP PRN #21 tab PRN Reason: Moderate Pain metroNIDAZOLE [Flagyl 500mg Tablet] 500 mg PO Q8H #21 tab levoFLOXacin [Levaquin 500mg tab] 500 mg PO DAILY #7 tab Continued Levothyroxine Sodium [Levothyroxine 100mcg (0.1MG) Tab] 100 mcg PO DAILY Lisinopril/Hydrochlorothiazide [Lisinopril-Hctz 20-12.5 mg Tab] 1 each PO DAILY Meloxicam 15 mg P
[2020-10-01 07:29] VITALS: BP 130/68; PULSE 90; TEMP 37
--- NOTE | 2020-10-01 07:29 | HMH.ANESII ---
[facility] Anesthesia Record Part II Discharge Time: 19:37 Destination: Second Floor PACU nurse assessment reviewed?: Yes Patient Condition:: Good Anesthesia Complications:: None Swallowing reflex intact?: Yes Cyanosis?: No Blood Pressure: 130/68 Pulse Rate: 90 Temperature: 98.6 F Mental Status: Alert & Oriented Pain level:: 0 Nausea and/or vomitting:: None Intake, IV Amount: 1,000
[2020-10-01 07:42] VITALS: BP 141/83; PULSE 88; RESP 18; TEMP 37.3; O2SAT 93
== END 2020-10-01 09:55 | disposition home or self-care (01) | DRG 340 ==
LOC: ER 17:09 → SDC 18:22 → 2ND 18:23
PROVIDERS: Admitting Provider Surgery; Emergency Provider Family Medicine; PCP Nurse Practitioner Family; Visit Provider Surgery
PROC: 0DTJ4ZZ Resection of Appendix, Percutaneous Endoscopic Approach (ICD-10-PCS; CPT 44950; principal; 2020-09-28 17:30)
DX: K35.32 Acute appendicitis with perforation, localized peritonitis, and gangrene, without abscess (principal); I10 Essential (primary) hypertension; E03.9 Hypothyroidism, unspecified; Z88.0 Allergy status to penicillin; Z88.2 Allergy status to sulfonamides
CPT/HCPCS: 44970; 36415; 74177; 80048; 80053; 81001; 83690; 85007; 85025; 87581; 87633; 87798; 99284; J0131; J1956; J2405; Q9967

== ENCOUNTER → 2021-04-07 16:07 | Outpatient (CLI) | payer BC, SELFPAY ==
--- NOTE | 2021-04-09 11:34 | PC.NURSE ---
notified pt of positive COVID test results at this time
== END ==
PROVIDERS: PCP Nurse Practitioner Family; Visit Provider Nurse Practitioner
DX: U07.1 COVID-19 (principal)
CPT/HCPCS: C9803; U0003; U0005

== ENCOUNTER → 2021-04-18 14:03 | Outpatient (CLI) | payer BC, SELFPAY | PROVIDERS: PCP Nurse Practitioner Family; Visit Provider Nurse Practitioner | DX: U07.1 COVID-19 (principal) | CPT/HCPCS: C9803; U0003; U0005 ==

== ENCOUNTER → 2022-10-15 09:27 | Outpatient (CLI) | payer BC, SELFPAY ==
--- NOTE | 2022-10-15 09:33 | US_ITS ---
FINAL REPORT CLINICAL HISTORY: THYROID NODULE.... ENLARGED THYROID FINDINGS: Ultrasound examination of the thyroid gland: The right lobe of the thyroid gland measures 4.5 x 1.9 x 1.8 cm in size, without a focal mass identified. The left lobe of the thyroid gland measures 4.2 x 2 x 1.6 cm in size, without a focal mass mass identified. The isthmus of the thyroid gland is slightly thickened and measures up to 8 mm in diameter. No focal mass is identified. IMPRESSION: The thyroid gland is normal in size, although the isthmus is slightly thickened. No focal lesions are identified. Reviewed, Interpreted and Dictated by Joyce Mccarty MD Transcribed by Elham Locke Authenticated and [facility]
--- NOTE | 2022-10-15 09:34 | MM_ITS ---
PROCEDURE INFORMATION: Exam: MG Bilateral Screening 3D Mammography Exam date and time: 10/15/2022 9:51 AM Age: 62 years old Clinical indication: Screening mammogram TECHNIQUE: Imaging protocol: Bilateral Screening tomosynthesis and 2D mammography including computer-aided detection (CAD) when performed. COMPARISON: 1. MG MM DIG SCREENING MAMM BI W/CAD 04/23/2020 8:36 AM 2. MG DMDBAV DIG MAMM-DX BILAT W/ADD VIEWS 04/28/2011 3:18 PM 3. MG DMSB DIGITAL MAMM-SCREEN BILATERAL 04/17/2011 10:24 AM FINDINGS: MAMMOGRAPHY: Breast composition: There are scattered areas of fibroglandular density. Mass: None. Architectural distortion: No new or suspicious architectural distortion. Calcifications: No new or suspicious calcifications are present Asymmetric density: No new or suspicious asymmetric density is present Skin thickening: None. Axillary adenopathy: None. IMPRESSION: No mammographic evidence of malignancy. Recommend annual screening mammography unless otherwise clinically indicated. ASSESSMENT: BI-RADS category 1: Negative
== END ==
PROVIDERS: PCP Nurse Practitioner Family; Visit Provider Nurse Practitioner Family
DX: Z13.21 Encounter for screening for nutritional disorder (principal); Z13.820 Encounter for screening for osteoporosis; Z78.0 Asymptomatic menopausal state; E07.9 Disorder of thyroid, unspecified
CPT/HCPCS: 76536; 77063; 77067

== ENCOUNTER → 2022-10-20 11:03 | Outpatient (CLI) | payer BC, SELFPAY | PROVIDERS: PCP Nurse Practitioner Family; Visit Provider Nurse Practitioner Family | DX: I05.9 Rheumatic mitral valve disease, unspecified (principal) | CPT/HCPCS: 93306 ==

== ENCOUNTER → 2022-11-02 09:06 | Outpatient (CLI) | payer BC, SELFPAY ==
--- NOTE | 2022-11-02 09:11 | XR_ITS ---
FINAL REPORT TECHNIQUE: Bone densitometry calculations of the lumbar spine and left hip were obtained. CLINICAL HISTORY: Postmenopausal female FINDINGS: Using L1-4, the bone mineral density of the spine is 1.1 g/cm2, corresponding to T-score of 1.1. Using the left hip, the bone mineral density of the femoral neck is 1.01 g/cm2, corresponding to a T-score of 0.6. NOTE: T-score: Standard deviation compared with peak bone mass of young adult mean. *Following the recommendations of the International Society of Bone densitometry, classification of hip BMD is based on the lower of two T-scores; total hip or femoral neck. IMPRESSION: Normal bone mineral density of the lumbar spine and hip. Reviewed, Interpreted and Dictated by Kevin Woodard III, MD Transcribed by Betty Nation Authenticated and [facility]
== END ==
PROVIDERS: PCP Nurse Practitioner Family; Visit Provider Nurse Practitioner Family
DX: Z13.820 Encounter for screening for osteoporosis (principal); Z78.0 Asymptomatic menopausal state
CPT/HCPCS: 77080

== ENCOUNTER 2023-08-16 23:26 | Outpatient (CLI) | payer BC, SELFPAY ==
[2023-08-16 17:32] LABS: Microscopic, Urine URINE MICROSCOPIC (MICROSCOPIC)
[2023-08-16 17:40] LABS: Basophils # 0.1 K/mm3 (0-0.2); Basophils % 1.5 % (0.1-2.0); Eosinophils # 0.1 K/mm3 (0.0-0.4); Eosinophils % 2.2 % (0.1-12.0); Hematocrit 43.3 % (37.0-47.0); Hemoglobin 14.6 g/dL (12.2-16.2); Lymphocytes % 32.9 % (10-50); Mean Corpuscular HGB Conc 33.7 g/dL (31.8-35.4); Mean Corpuscular Hemoglobin 30.9 pg (27.0-31.2); Mean Corpuscular Volume 91.7 fl (81-99); Mean Platelet Volume 7.7 fl (7.4-10.4); Monocytes # 0.5 K/mm3 (0.1-1.0); Monocytes % 8.5 % (1.7-9.3); Neutrophils # 3.3 K/mm3 (1.8-7.8); Neutrophils % 54.8 % (37.0-80.0); Platelet Count 289 K/mm3 (142-424); Red Blood Count 4.73 M/mm3 (4.20-5.40); Red Cell Distribution Width 13.7 % (11.5-17.5)
[2023-08-16 18:49] LABS: Appearance,Urine CLEAR (Clear); Bilirubin,Urine Negative (Negative); Blood, Urine Negative (Negative); Color,Urine YELLOW (Yellow); Glucose,Urine (UA) Negative (Negative); Hemoglobin A1C 5.5 % (4.0-6.0); Ketones,Urine Negative (Negative); Leukocyte Esterase,Urine Negative (Negative); Nitrate,Urine Negative (Negative); Protein,Urine Negative (Negative); Specific Gravity, Urine >= 1.030 (1.005-1.030); Urobilinogen,Urine 0.2 EU/dl (0.2)
[2023-08-16 18:54] LABS: Alanine Aminotransferase 37 U/L (12-78); Albumin Level 4.8 g/dl (3.5-5.0); Albumin/Globulin Ratio 1.6 (1.1-1.8); Alkaline Phosphatase 67 U/L (38-126); Anion Gap 14.3 mEq/L (5-15); Aspartate Amino Transferase 35 U/L (14-36); Bilirubin,Total 1.6 mg/dl (0.2-1.3); Blood Urea Nitrogen 20 mg/dl (7-17); Calcium 10.7 mg/dl (8.4-10.2); Carbon Dioxide 30 mmol/L (22.0-30.0); Chloride 101 mmol/L (98-107); Cholesterol 235 mg/dl (140-200); Estimated Glomerular Filt Rate 45 ml/min (>60); GFR (African American) 55 ML/MIN (>60); Glucose 82 mg/dl (74-100); HDL Cholesterol 47 mg/dl (40-60); Potassium 4.3 mmoL/L (3.5-5.1); Sodium 141 mmol/L (136-145); Total Protein,Serum 7.8 g/dl (6.3-8.2); Triglycerides 185 mg/dl (30-150); VLDL Cholesterol 37 mg/dL (0-40)
[2023-08-16 18:58] LABS: Total Protein,Urine Random < 5.0 mg/dL (0.0-12.0)
[2023-08-16 19:08] LABS: 25-OH Vitamin D, Total 39.1 ng/mL (30-100)
[2023-08-16 19:09] LABS: Direct LDL Cholesterol 126.59 mg/dL (100-129)
[2023-08-16 19:11] LABS: Free T4 (Free Thyroxine) 1.65 ng/dl (0.78-2.19)
[2023-08-16 19:31] LABS: Thyroid Stimulating Hormone 2.92 uIU/mL (0.465-4.68)
[2023-08-16 19:38] LABS: RBC,Urine Occasional #/hpf (0-3); Squamous Epithelial Cell,Urine Occasional #/hpf (0-5)
[2023-08-16 19:51] LABS: Vitamin B12 686 pg/mL (239-931)
[2023-08-17 10:02] LABS: Intact Parathyroid Hormone 65.4 pg/mL (7.5-53.5)
== END 2023-08-16 23:59 | disposition home or self-care (01) ==
LOC: LAB.DROPOF 23:26
PROVIDERS: PCP Nurse Practitioner Family; Visit Provider Nurse Practitioner Family
DX: I10 Essential (primary) hypertension (principal); E05.90 Thyrotoxicosis, unspecified without thyrotoxic crisis or storm; R53.83 Other fatigue; Z13.1 Encounter for screening for diabetes mellitus; E83.52 Hypercalcemia; E03.9 Hypothyroidism, unspecified; N18.30 Chronic kidney disease, stage 3 unspecified; Z79.899 Other long term (current) drug therapy; B96.89 Other specified bacterial agents as the cause of diseases classified elsewhere
CPT/HCPCS: 80053; 80061; 81001; 82306; 82607; 83036; 83970; 84156; 84439; 84443; 85025; 87086

== ENCOUNTER 2023-09-16 12:30 | Outpatient (CLI) | payer BC, SELFPAY ==
[2023-09-16 12:53] LABS: Chol/HDL Ratio 2.1 (1-3.5); Cholesterol 132 mg/dl (140-200); HDL Cholesterol 63 mg/dl (40-60); Triglycerides 99 mg/dl (30-150); VLDL Cholesterol 20 mg/dL (0-40)
[2023-09-16 13:03] LABS: Direct LDL Cholesterol 65.84 mg/dL (100-129)
== END 2023-09-16 23:59 | disposition home or self-care (01) ==
LOC: LAB.DROPOF 12:30
PROVIDERS: PCP Nurse Practitioner Family; Visit Provider Nurse Practitioner Family
DX: E78.5 Hyperlipidemia, unspecified (principal)
CPT/HCPCS: 80061

== ENCOUNTER 2023-12-16 14:03 | Outpatient (CLI) | payer BC, SELFPAY ==
[2023-12-16 14:41] LABS: Chol/HDL Ratio 2.6 (1-3.5); Cholesterol 132 mg/dl (140-200); HDL Cholesterol 50 mg/dl (40-60); Triglycerides 89 mg/dl (30-150); VLDL Cholesterol 18 mg/dL (0-40)
[2023-12-16 14:51] LABS: Direct LDL Cholesterol 60.66 mg/dL (100-129)
== END 2023-12-16 23:59 | disposition home or self-care (01) ==
LOC: LAB.DROPOF 14:03
PROVIDERS: PCP Nurse Practitioner Family; Visit Provider Nurse Practitioner Family
DX: E78.5 Hyperlipidemia, unspecified (principal)
CPT/HCPCS: 80061

== ENCOUNTER 2024-01-04 10:12 | Outpatient (CLI) | payer BC, SELFPAY ==
--- NOTE | 2024-01-04 10:13 | MM_ITS ---
PROCEDURE INFORMATION: Exam: MG Bilateral Screening 3D Mammography Exam date and time: 01/04/2024 10:09 AM Age: 63 years old Clinical indication: Screening examination. TECHNIQUE: Imaging protocol: Bilateral Screening tomosynthesis and 2D mammography including computer-aided detection (CAD) when performed. COMPARISON: 1. MG MM DIG SCREENING MAMM BI W/CAD 10/15/2022 9:51 AM 2. MG MM DIG SCREENING MAMM BI W/CAD 04/23/2020 8:36 AM FINDINGS: MAMMOGRAPHY: Breast composition: There are scattered areas of fibroglandular density. Mass: None. Architectural distortion: None. Calcifications: No suspicious calcifications. Asymmetric density: None. Skin thickening: None. Axillary adenopathy: None. IMPRESSION: No mammographic evidence of malignancy. Annual screening is recommended unless otherwise clinically indicated. ASSESSMENT: BI-RADS Category 1: Negative
== END 2024-01-04 23:59 | disposition home or self-care (01) ==
LOC: RAD 10:13
PROVIDERS: PCP Nurse Practitioner Family; Visit Provider Nurse Practitioner Family
DX: Z12.31 Encounter for screening mammogram for malignant neoplasm of breast (principal)
CPT/HCPCS: 77063; 77067

== ENCOUNTER 2024-08-23 10:55 | Outpatient (CLI) | payer BC, SELFPAY ==
[2024-08-23 10:16] LABS: Microscopic, Urine URINE MICROSCOPIC (MICROSCOPIC)
[2024-08-23 10:52] LABS: Basophils % 0.8 % (0.1-2.0); Eosinophils # 0.1 K/mm3 (0.0-0.4); Eosinophils % 2.7 % (0.1-12.0); Hematocrit 43.8 % (37.0-47.0); Hemoglobin 15.1 g/dL (12.2-16.2); Lymphocytes # 1.5 K/mm3 (0.7-4.5); Lymphocytes % 30.1 % (10-50); Mean Corpuscular HGB Conc 34.5 g/dL (31.8-35.4); Mean Corpuscular Hemoglobin 30.1 pg (27.0-31.2); Mean Corpuscular Volume 87.4 fl (81-99); Mean Platelet Volume 9.2 fl (7.4-10.4); Monocytes # 0.5 K/mm3 (0.1-1.0); Monocytes % 10.6 % (1.7-9.3); Neutrophils # 2.8 K/mm3 (1.8-7.8); Neutrophils % 55.6 % (37.0-80.0); Nucleated Red Blood Cells # 0 10^3/uL; Nucleated Red Blood Cells % 0 %; Platelet Count 256 K/mm3 (142-424); Red Blood Count 5.01 M/mm3 (4.20-5.40); Red Cell Distribution Width 13.1 % (11.5-17.5); Red Cell Distribution Width-SD 41.7 fL; White Blood Count 5.1 K/mm3 (4.8-10.8)
[2024-08-23 11:15] LABS: Hemoglobin A1C 5.6 % (4.0-6.0)
[2024-08-23 11:27] LABS: Albumin Level 5.1 g/dl (3.5-5.0); Chloride 103 mmol/L (98-107); Sodium 142 mmol/L (136-145)
[2024-08-23 11:28] LABS: Potassium 4.7 mmoL/L (3.5-5.1)
[2024-08-23 11:30] LABS: Alanine Aminotransferase 54 U/L (12-78); Albumin/Globulin Ratio 1.6 (1.1-1.8); Alkaline Phosphatase 52 U/L (38-126); Anion Gap 14.7 mEq/L (5-15); Aspartate Amino Transferase 46 U/L (14-36); Bilirubin,Total 2.5 mg/dl (0.2-1.3); Blood Urea Nitrogen 22 mg/dl (7-17); Carbon Dioxide 29 mmol/L (22.0-30.0); Cholesterol 138 mg/dl (140-200); Estimated Glomerular Filt Rate 50 ml/min (>60); GFR (African American) 61 ML/MIN (>60); Globulin 3.1 g/dL (1.3-3.2); Iron 114 ug/dL (37-170); Total Protein,Serum 8.2 g/dl (6.3-8.2); Triglycerides 154 mg/dl (30-150); VLDL Cholesterol 31 mg/dL (0-40)
[2024-08-23 11:31] LABS: Calcium 10.1 mg/dl (8.4-10.2); Chol/HDL Ratio 2.3 (1-3.5); Glucose 113 mg/dl (74-100); HDL Cholesterol 60 mg/dl (40-60)
[2024-08-23 11:40] LABS: Appearance,Urine CLEAR (Clear); Bilirubin,Urine Negative (Negative); Blood, Urine Negative (Negative); Color,Urine YELLOW (Yellow); Glucose,Urine (UA) Negative (Negative); Ketones,Urine Negative (Negative); Leukocyte Esterase,Urine 1+ (Negative); Nitrate,Urine Negative (Negative); Protein,Urine Negative (Negative); Specific Gravity, Urine >= 1.030 (1.005-1.030); Urobilinogen,Urine 0.2 EU/dl (0.2)
[2024-08-23 11:41] LABS: Total Iron Binding Capacity 394 ug/dL (265-497)
[2024-08-23 11:42] LABS: Direct LDL Cholesterol 60.13 mg/dL (100-129); Total Protein,Urine Random < 5.0 mg/dL (0.0-12.0)
[2024-08-23 11:47] LABS: Free T4 (Free Thyroxine) 1.53 ng/dl (0.78-2.19)
[2024-08-23 11:49] LABS: 25-OH Vitamin D, Total 61.9 ng/mL (30-100)
[2024-08-23 12:04] LABS: Thyroid Stimulating Hormone 1.76 uIU/mL (0.465-4.68)
[2024-08-23 12:09] LABS: HIV Combo NEGATIVE (Negative)
[2024-08-23 12:23] LABS: Hepatitis C Ab Qual. W/ RFX NEGATIVE (Negative)
[2024-08-23 12:35] LABS: RBC,Urine Occasional #/hpf (0-3)
[2024-08-23 12:36] LABS: Bacteria,Urine Trace /lpf
[2024-08-23 13:56] LABS: Vitamin B12 761 pg/mL (239-931)
[2024-08-23 14:40] LABS: Ferritin 166 ng/ml (11.1-264)
== END 2024-08-23 23:59 | disposition home or self-care (01) ==
LOC: LAB.DROPOF 10:55
PROVIDERS: PCP Nurse Practitioner Family; Visit Provider Nurse Practitioner Family
DX: E11.22 Type 2 diabetes mellitus with diabetic chronic kidney disease (principal); I12.9 Hypertensive chronic kidney disease with stage 1 through stage 4 chronic kidney disease, or unspecified chronic kidney disease; N18.30 Chronic kidney disease, stage 3 unspecified; E83.52 Hypercalcemia; E78.5 Hyperlipidemia, unspecified; E03.9 Hypothyroidism, unspecified; R53.83 Other fatigue; R41.3 Other amnesia; G47.33 Obstructive sleep apnea (adult) (pediatric); Z11.4 Encounter for screening for human immunodeficiency virus [HIV]; Z11.59 Encounter for screening for other viral diseases
CPT/HCPCS: 80053; 80061; 81001; 82306; 82607; 82728; 83036; 83540; 83550; 84156; 84439; 84443; 85025; 86803; 87086; 87389

== ENCOUNTER 2024-08-30 09:01 | Outpatient (CLI) | payer BC, SELFPAY ==
--- NOTE | 2024-08-30 09:00 | XR_ITS ---
FINAL REPORT TECHNIQUE: Bone densitometry calculations of the lumbar spine and left hip were obtained. CLINICAL HISTORY: osteoporosis screening COMPARISON: 11/02/2022 FINDINGS: Using L1-4, the bone mineral density of the spine is 1.230 g/cm2, corresponding to T-score of 1.7 and Z-score of 3.4. This is within the range of normal. Using the left hip, the bone mineral density of the femoral neck is 0.812 g/cm2, corresponding to a T-score of -0.3 and a Z-score of 1.1. This is within the range of normal. Using the right hip, the bone mineral density of the femoral neck is 0.926 g/cm?, corresponding to a T-score of 0.7 and a Z-score of 2.2. This is within the range of normal. NOTE: T-score: Standard deviation compared with peak bone mass of young adult mean. *Following the recommendations of the International Society of Bone densitometry, classification of hip BMD is based on the lower of two T-scores; total hip or femoral neck. IMPRESSION: 1. Bone mineral density of the lumbar spine within the range of normal. 2. Bone mineral density of the bilateral femoral neck within the range of normal. Reviewed, Interpreted and Dictated by Minerva Rob MD Transcribed by Elham Locke Authenticated and [facility]
== END 2024-08-30 23:59 | disposition home or self-care (01) ==
LOC: RAD 09:02
PROVIDERS: PCP Nurse Practitioner Family; Visit Provider Nurse Practitioner Family
DX: Z13.820 Encounter for screening for osteoporosis (principal)
CPT/HCPCS: 77080

== ENCOUNTER 2025-04-18 09:25 | Outpatient (CLI) | payer BC, SELFPAY ==
--- NOTE | 2025-04-18 09:30 | CA_ITS ---
APPROVED REPORT EXAM: Comprehensive 2D, Doppler, and color-flow Echocardiogram [employer] Worker: Michelle German CRT Ht: 5 ft 3 in Wt: 242lbs BSA: 2.10 BP: 156/68 mmHg Indications: palpitations, HTN, HLD 2D Dimensions LA Volume 45.20 mL LA Volume Index 21.00 mL/m2 (M/F) 16-34 M-Mode Dimensions RVDd 2.09 cm (0.9-2.6) LA Diam 2.54 cm (1.9-4.0) LVDd 3.98 cm (3.5-5.7) LVDs 2.33 cm (3.5-5.7) IVSd 2.00 cm (0.6-1.1) PWd 1.07 cm (0.6-1.1) EF (Teich) 73.00% FS 41.50% EDV (Teich) 69.20 mL TAPSE 2.83 (<1.7) ESV (Teich) 18.70 mL LV Diastology E Decel Time 160 (160-240 msec) E/A Ratio 0.68 MED A' 8.70 cm/s LAT A' 10.90 cm/s Aortic Valve AO Peak GR. 8.90 mmHg Mitral Valve MV A Velocity 110.0 (40-130 cm/s) E/A Ratio 0.68 Pulmonary Valve PV Peak Velocity 136.0 (50-150 cm/s) Tricuspid Valve TR P. Velocity 165.00 cm/s RAP Estimate 10.00 mmHg RVSP 20.80 mmHg Left Ventricle The left ventricle is normal size. Left ventricular systolic function is normal. The left ventricular ejection fraction is within the normal range. There is increased left ventricular wall thickness. There is normal LV segmental wall motion. Transmitral Doppler flow pattern suggests impaired LV relaxation. LVEF is 55% Right Ventricle The right ventricle is mildly dilated. The right ventricular systolic function is normal. Atria Left atrium is mildly dilated. Right atrium is mildly dilated. There is no color Doppler evidence of interatrial shunt. Aortic Valve The aortic valve opens well. There is no hemodynamically significant aortic valvular stenosis. No aortic regurgitation is present. Mitral Valve The mitral valve is normal in structure. No evidence of mitral valve stenosis. Trace mitral regurgitation is present. Tricuspid Valve The tricuspid valve leaflets are thin and pliable. Trace tricuspid regurgitation. There is insufficient TR jet to estimate RVSP. Pulmonic Valve The pulmonary valve is grossly normal in structure. Trace pulmonic valve regurgitation is present. Great Vessels The aortic root is normal in size. IVC is normal in size and collapses >50% with inspiration. Pericardium There is no pericardial effusion. Other Information Study Quality: Technically Difficult Conclusion Normal biventricular systolic function. Mild RV dilation. Mild biatrial dilation. No significant valvular stenosis or regurgitation. Electronically signed by : Tanisha Kim MD 04/24/2025 13:21:04
== END 2025-04-18 23:59 | disposition home or self-care (01) ==
LOC: RT 09:26
PROVIDERS: PCP Nurse Practitioner Family; Visit Provider Nurse Practitioner Family
DX: I11.9 Hypertensive heart disease without heart failure (principal); I05.9 Rheumatic mitral valve disease, unspecified; E78.5 Hyperlipidemia, unspecified
CPT/HCPCS: 93306